=== PATIENT | female | born 2000 | race Two or more races ===

== ENCOUNTER 2024-05-01 07:23 | Emergency (ER) | payer MEDICAID ==
[~2024-05-01] VITALS: Ht 160 cm; Wt 69.1 kg
[2024-05-01 07:32] VITALS: BP 128/71; PULSE 94; RESP 16; TEMP 98.1; O2SAT 100
[2024-05-01 08:32] LABS: BASOPHILS % (AUTO) 0.8 % (0.0-2.0); HEMATOCRIT 34.5 % (36-46); HEMOGLOBIN 10.7 g/dL (12.0-16.0); LYMPHOCYTES # (AUTO) 1.5 K/uL (1.0-4.8); LYMPHOCYTES % (AUTO) 19.9 % (22.0-44.0); MEAN CORPUSCULAR HEMOGLOBIN 23.9 pg (26.0-34.0); MEAN CORPUSCULAR HGB CONC 31.1 G/dL (31.0-37.0); MEAN CORPUSCULAR VOLUME 77 fL (80-100); MONOCYTES # (AUTO) 0.4 K/uL (0.1-1.0); MONOCYTES % (AUTO) 5.5 % (2.0-9.0); NEUTROPHILS # (AUTO) 5.4 K/uL (1.8-7.7); NEUTROPHILS % (AUTO) 72.8 % (40.0-70.0); PLATELET COUNT (AUTO) 231 K/uL (150-450); RED BLOOD CELL COUNT(AUTO) 4.48 MIL/uL (4.00-5.20); RED CELL DISTRIBUTION WIDTH 17.7 % (11.5-14.5); WHITE BLOOD COUNT (AUTO) 7.4 K/uL (4.5-11.0)
[2024-05-01 08:44] LABS: COVID AG,FIA SOURCE NASAL SWAB
[2024-05-01 08:44] LABS: ANION GAP 10 mmol/L (8-16); CALCIUM, TOTAL 9.1 mg/dL (8.8-10.5); CARBON DIOXIDE 23 mmol/L (22-29); CHLORIDE 105 mmol/L (98-107); CREATININE 0.64 mg/dL (0.60-1.30); GLOMERULAR FILTR. RATE CALC > 60 mL/min (>60); GLUCOSE,RANDOM 94 mg/dL (70-110); SODIUM SERUM 138 mmol/L (136-145); UREA NITROGEN, BLOOD 10 mg/dL (7-18)
[2024-05-01 08:48] LABS: RBC MORPHOLOGY COMMENT ABNORMAL RBC MORPH
[2024-05-01 08:59] LABS: ALCOHOL, BLOOD (SERUM) < 3 mg/dL (0-10)
[2024-05-01 09:07] LABS: SARS-COV2 (COVID) ANTIGEN,FIA Negative (Negative)
[2024-05-01 09:42] LABS: AMPHET/METH SCREEN,URINE NEGATIVE (NEGATIVE); BARBITURATE SCREEN, URINE NEGATIVE (NEGATIVE); BENZODIAZEPINES SCREEN,URINE NEGATIVE (NEGATIVE); CANNABINOID SCREEN,URINE POSITIVE (NEGATIVE); COCAINE SCREEN,URINE NEGATIVE (NEGATIVE); METHADONE SCREEN, URINE NEGATIVE (NEGATIVE); OPIATE SCREEN,URINE NEGATIVE (NEGATIVE); PHENCYCLIDINE SCREEN,URINE NEGATIVE (NEGATIVE)
[2024-05-01 10:00] LABS: ALCOHOL, URINE DRUG SCREEN NEGATIVE (NEGATIVE)
[2024-05-01 10:23] LABS: LITHIUM 0.27 mmol/L (0.60-1.20)
[2024-05-01 10:25] LABS: HEMOGLOBIN A1C 5.5 % (3.8-5.6)
[2024-05-01 10:38] LABS: ALANINE AMINOTRANSFERASE 20 U/L (12-78); ALBUMIN 3.8 g/dL (3.4-5.0); ALKALINE PHOSPHATASE 102 U/L (46-116); ASPARTATE AMINOTRANSFERASE 11 U/L (15-37); BILIRUBIN,TOTAL 0.3 mg/dL (0.1-1.0); CHOL/HDL RATIO 2.6 (3.9-5.7); CHOLESTEROL 159 mg/dL (131-200); HDL CHOLESTEROL 62 mg/dL (40-60); TOTAL PROTEIN, SERUM 7.3 g/dL (6.4-8.2); TRIGLYCERIDES 31 mg/dL (15-150)
[2024-05-01 10:39] LABS: FREE T4 (FREE THYROXINE) 1.19 ng/dL (0.76-1.46); LDL CHOL (CALC.) 91 mg/dL (0-130)
[2024-05-01] MEDS ORDERED: LITH450T25 PO (11:45)
[2024-05-01] MEDS ORDERED: VENL-193 PO (11:45)
[2024-05-01] MEDS ORDERED: METO5TAB95 PO (11:45)
[2024-05-03] MEDS ORDERED: BUPR-514 PO (05:50)
[2024-05-03] MEDS ORDERED: LITH300C3 PO (05:50)
[2024-05-03] MEDS ORDERED: FERR325T27 PO (05:50)
== END 2024-05-01 10:51 ==
LOC: EMS 07:23
DX: R45.851 Suicidal ideations (principal); F12.90 Cannabis use, unspecified, uncomplicated; F32.A Depression, unspecified; Z79.899 Other long term (current) drug therapy; Z20.822 Contact with and (suspected) exposure to COVID-19
CPT/HCPCS: 99285; 87426; 80061; 80053; 80178; 83036; 84439; 84443; 85025; 36415; 93005; 80307; G0480